=== PATIENT | male | born 1960 | race Caucasian/White ===

== ENCOUNTER → 2024-01-28 11:29 | Outpatient (REF) | payer MEDICARE, OTHER, SELFPAY | LOC: PAVMRI 11:29 | PROVIDERS: ATTENDING PHYSICIAN Psychiatry & Neurology Neurology; FAMILY PHYSICIAN Family Medicine | DX: G60.9 Hereditary and idiopathic neuropathy, unspecified (principal); M54.12 Radiculopathy, cervical region | CPT/HCPCS: 72141 ==

== ENCOUNTER 2024-03-17 03:17 | Inpatient (IN) | payer MEDICARE, OTHER, SELFPAY ==
[2024-03-16 21:53] VITALS: BP 130/76
[2024-03-16 22:12] LABS: % Basophils 0.8 % (0-2); % Eosinophils 1.3 % (0-6); % Immature Granulocytes 0.3 % (0-0.5); % Lymphocytes 45.9 % (20.5-51.1); % Monocytes 7.6 % (1.7-9.3); % Neutrophils 44.1 % (42.2-75.2); Absolute Basophils 0.1 10^3/uL (0-0.2); Absolute Eosinophils 0.1 10^3/uL (0-0.7); Absolute Lymphocytes 3.6 10^3/uL (1.2-3.4); Absolute Monocytes 0.6 10^3/uL (0.1-0.6); Absolute Neutrophils 3.5 10^3/uL (1.4-6.5); Hematocrit 49.3 % (39.0-52.0); Hemoglobin 17.7 g/dL (13.0-18.0); Mean Corp Hgb Conc. 35.9 g/dL (33.0-37.0); Mean Corpuscular Hgb 30.5 pg (27.0-31.0); Mean Corpuscular Volume 84.9 fL (80.0-94.0); Mean Platelet Volume 10.7 fL (7.4-10.4); Nucleated Red Blood Cells % 0 % (-); Platelet Count 144 10^3/uL (130-400); Red Blood Cell Count 5.81 10^6/uL (4.70-6.10); Red Cell Dist. Width 13.1 % (11.5-14.5); White Blood Cell Count 7.9 10^3/uL (4.8-10.8)
[2024-03-16 22:18] VITALS: BP 136/84
[2024-03-16 22:25] LABS: ALT (SGPT) 36 U/L (0-50); AST (SGOT) 39 U/L (17-59); Albumin 4.5 g/dl (3.5-5.0); Alkaline Phosphatase 94 U/L (38-126); Blood Urea Nitrogen 17 mg/dl (9-20); Calcium 9.3 mg/dl (8.4-10.2); Carbon Dioxide 27 mmol/L (22-30); Chloride 107 mmol/L (98-107); Glucose 169 mg/dl (70-99); Potassium 3.9 mmol/L (3.5-5.1); Sodium 138 mmol/L (135-145); Total Bilirubin 0.6 mg/dl (0.2-1.3); Total Protein 6.6 g/dl (6.3-8.2); eGFR > 60.00
[2024-03-16 22:30] VITALS: BMI 30.9
[2024-03-16 22:55] LABS: TSH Reflex To Free T4 2.61 uIU/ml (0.47-4.68)
--- NOTE | 2024-03-16 22:59 | ED.GENMED ---
History of Present Illness
<TRINI Redding - Last Filed: 03/17/24 06:31>
General
Chief Complaint: Heart Rate Problem
Source: patient
Exam Limitations: none
Time Seen by Provider: 03/16/24 22:47
Nursing documentation reviewed up to this point in time: agreed with
Travel History
Have you had any contact with someone who has COVID-19?: No
Do you have any symptoms of coronavirus? Fever > 100 degrees, chills, cough, shortness of breath, sore throat, loss of taste or smell, muscle aches, or headache?: No
History of Present Illness
History of Present Illness:
This is a 64 year old male with history of afib (ablation 2016), sleep apnea, anxiety, depression, CLL who presents to the ED with complaint of heart palpitations x1 day. He states, 'I felt this before when I had afib.' He states he was getting
ready for bed yesterday when he noticed his heart racing. He was able to sleep through the night without any difficulty, but continued to have heart palpitations when he woke up. He reports he started taking Doxycycline 100mg BID on Saturday
prescribed by his PCP for potential tic bite. He also admits 'not feeling well on Saturday.' He was drinking beers over the weekend. He denies SOB, CP, headaches, LE extremity, fevers, chills, or NVD. He denies recent history of travel or illness.
Denies recent sick contacts.
Past History
<TRINI Redding - Last Filed: 03/17/24 06:31>
Past History
ED Past Medical History: Psychiatric (anxiety, depression); Negative Asthma, HTN, Hypercholesterolemia or NIDDM
ED Past Surgical History: Appendectomy and Cardiac (Ablation)
Social History
Tobacco: Non-smoker
Alcohol: Occasional
Personal:
Living: alone
Employment: Employed
Review of Systems
<TRINI Redding - Last Filed: 03/17/24 06:31>
Review of Systems
Allergies reviewed?: Yes
All Other Systems: Not applicable
Constitutional: Reports no symptoms
EENT: Reports no symptoms
Respiratory: Reports no symptoms
Cardiac: Reports palpitations and other ('I feel like I'm in afib')
ABD/GI: Reports no symptoms
: Reports no symptoms
Musculoskeletal: Reports no symptoms
Skin: Reports no symptoms
Neurological: Reports no symptoms
Endocrine: Reports no symptoms
Hematologic/Lymphatic: Reports no symptoms
Psychiatric: Reports no symptoms
Phy Exam
<TRINI Redding - Last Filed: 03/17/24 06:31>
General Physical Exam
General Presentation: well appearing and no apparent distress
General Skin: warm and dry
General Habitus: normal
General Mental: alert
General Hydration: appears well hydrated
ENT Exam
ENT Exam: EOMI, pharynx normal, neck supple and normocephalic
Eye Exam
Eye Exam: PERRL, cornea clear and conjunctiva normal
Cardiovascular Exam
Cardiovascular Exam: no edema, no murmur, normal peripheral pulses, irregularly irregular and tachycardia
Pulmonary Exam
Pulmonary Exam: lungs clear, no respiratory distress, no rales, no crackles, no rhonchi, no stridor, no wheezing and no cough
Gastrointestinal Exam
Gastrointestinal Exam: normal bowel sounds, non tender, soft, no organomegaly, no pulsatile mass and non distended
Neurological Exam
Neurological Exam: alert, oriented x3, no motor deficits and speech normal
Musculoskeletal Exam
Musculoskeletal Exam: full ROM and no edema
Skin Exam
Skin Exam: normal color, warm/dry, no rash and no petechia
Psychiatric Exam
Psychiatric Exam: normal mood/affect
Course
<TRINI Redding - Last Filed: 03/17/24 06:31>
Orders/Labs/Results
Orders:
Orders
03/16/24 21:47
Electrocardiogram (*1) Urgent
Reason for Study: Palpitations
EKG- Treatment ONCE
03/16/24 22:04
CMP [Comprehensive Metabolic Panel] Urgent
Complete Blood Count/With Diff Urgent
TSH Reflex To Free T4 Urgent
03/16/24 23:18
Diltiazem 125 mg/125 ml Nss [Cardizem] 125 mg in 125 ml IV NOW
Initial dose in mg/hr, then titrate:: 5
Titrate to keep:: Heart rate 80-100 bpm
Titrate by mg/hr:: 5 mg/hr
Frequency of titrations (minutes):: 15
Maximum dose in mg/hr:: 15
Diltiazem HCl [Cardizem] 5 mg IV NOW STA
03/16/24 23:32
Lyme Progressive Urgent
03/17/24 03:00
Admit/Transfer Patient As Directed
Co-Sign Provider:
Level of Care: Inpatient admission
Assign to:: IVU
Physician / Group: Kevin
Diagnosis: A-Fib with RVR
Reason for Hospitalization: A-Fib with RVR
Expected length of stay greater than two midnights?: Yes
ELOS- Estimated Length of Stay in days: 2
I certify the patient meets the requirements for IP care: Yes
03/17/24 03:04
Code Status As Directed
Resuscitation Status: Full Code
03/17/24 03:[address] See Dose Instructions PO NOW STA
Discontinue all Active Warfarin orders?: Yes
03/17/24 03:28
Acetaminophen [Tylenol] 650 mg PO Q4HPRN PRN
Diltiazem 125 mg/125 ml Nss [Cardizem] 125 mg in 125 ml IV PER PROTOCOL
Currently infusing. Continue current dose and titrate:: Yes
Titrate to keep:: Heart rate 80-100 bpm
Titrate by mg/hr:: 5 mg/hr
Frequency of titrations (minutes):: 15
Maximum dose in mg/hr:: 15
Heparin 29121 Units/250 ml 25,000 units in 250 ml IV PER PROTOCOL
Weight to be used for heparin protocol in kilograms (kg):: 117.934
Protocol:: Cardiac Tx/Acute Coronary
PTT Goal Range to be used:: PTT 73 to 111 seconds
Order type:: Initial
INITIAL Infusion Dose (UNITS/KG/hr) & then follow protocol:: 12 units/kg/hr
Infusion Dose in UNITS/hr & then follow protocol (UNITS/hr):: 1,000
INFUSION RATE in mL/hr & then follow protocol (mL/hr):: 10
PTT less than or equal to 64 seconds:: Increase rate by 200 units/hr (+ 2 mL/hr)
PTT 64.1 to 72.9 seconds:: Increase rate by 100 units/hr (+ 1 mL/hr)
PTT 73 to 111 seconds:: Target Range. No change in rate.
PTT 111.1 to 130.9 seconds:: Decrease rate by 100 units/hr (- 1 mL/hr)
PTT 131 to 199.9 seconds:: HOLD for 1 hr. Then decrease rate by 200 units/hr (- 2 mL/hr)
PTT greater than or equal to 200 seconds:: HOLD for 2 hrs & Notify Provider. Then decrease by 200 units/hr (-
2 mL/hr)
Lab follow-up:: Each change, PTT q6h until 2 consecutive are therapeutic. Then PTT
daily.
03/17/24 03:28
CARDIOLOGY CONSULT Routine
Consulting Provider: Devon Bernal
Was physician already notified: No
Reason for consult: A-Fib
Consult Notification Routine
Specialty to Notify: Cardiology
Heparin Protocol- PTT Orders As Directed
PTT per Heparin protocol: -Obtain CBC and baseline PTT - if not already collected.
-Obtain PTT 6 hours from start of infusion. Then, every 6 hours until 2 consecutive
PTT's are therapeutic. Then, PTT Daily.
-With each rate change, obtain PTT every 6 hours until 2 consecutive PTT's are
therapeutic. Then, PTT Daily.
Activity As Directed
Activity Level: Ambulate
With Assistance
Bladder Scan As Directed
Follow Bladder Retention/Intermittent Cath Algorithm?: Yes
PRN if no void in __ hours: 6
Frequency: Per Retention Algorithm
If Bladder Scan Result >: 400
then:: Straight cath
EKG with chest pain [ECG as needed] As Directed
ECG as needed for:: Chest Pain
I/O [Intake/ Output] As Directed
Frequency: Per unit guidelines
Notify MD As Directed
Notify physician if: PTT is greater than or equal to 200.
Orthostatic Vital Signs As Directed
Orthostatic VS Frequency: BID
Straight Cath As Directed
Frequency: Per Retention Algorithm
Additional Instructions: straight cath as needed per acute urinary retention algorithm for 24 hrs
Additional Instructions: for bladder scan greater than 400 mL
Vital Signs As Directed
Frequency: Per unit guidelines
Weight As Directed
Frequency: Daily
Oxygen Therapy [O2 Therapy] [RESP] Routine
Titrate/Wean O2 to maintain O2 sat greater than (%): 94
03/17/24 03:30
Basic Metabolic Panel IN AM
03/17/24 03:33
Complete Blood Count/No Diff Urgent
Comment: Obtain baseline before beginning heparin infusion if not already collected
PTT Urgent
Comment: Obtain baseline before beginning heparin infusion if not already collected
Troponin I Q6H
03/17/24 05:54
Complete Blood Count/No Diff IN AM
03/17/24 06:00
EKG [Electrocardiogram (*1)] IN AM
Reason for Study: Chest Pain
03/17/24 08:00
Desvenlafaxine Succinate [Pristiq] 50 mg PO DAILY
Lamotrigine [Lamictal] 25 mg PO DAILY
Rosuvastatin Calcium [Crestor] 40 mg PO DAILY
zanubrutinib 160 mg PO BID
03/17/24 09:28
Troponin I Q6H
03/17/24 15:28
Troponin I Q6H
03/18/24 Breakfast
NPO
Allow oral meds: Yes
Allow clear liquids: Sips of Clears
03/19/24 06:00
Complete Blood Count/No Diff Q2D
Comment: Notify MD if platelet count is <130,000 or decreases by 50% from baseline
03/21/24 06:00
Complete Blood Count/No Diff Q2D
Comment: Notify MD if platelet count is <130,000 or decreases by 50% from baseline
03/23/24 06:00
Complete Blood Count/No Diff Q2D
Comment: Notify MD if platelet count is <130,000 or decreases by 50% from baseline
03/25/24 06:00
Complete Blood Count/No Diff Q2D
Comment: Notify MD if platelet count is <130,000 or decreases by 50% from baseline
03/27/24 06:00
Complete Blood Count/No Diff Q2D
Comment: Notify MD if platelet count is <130,000 or decreases by 50% from baseline
03/29/24 06:00
Complete Blood Count/No Diff Q2D
Comment: Notify MD if platelet count is <130,000 or decreases by 50% from baseline
03/31/24 06:00
Complete Blood Count/No Diff Q2D
Comment: Notify MD if platelet count is <130,000 or decreases by 50% from baseline
04/02/24 06:00
Complete Blood Count/No Diff Q2D
Comment: Notify MD if platelet count is <130,000 or decreases by 50% from baseline
Abnormal Lab Results
03/16/24
22:04
MPV 10.7 H fL
(7.4-10.4)
Absolute Lymphs (auto) 3.6 H 10^3/uL
(1.2-3.4)
Glucose 169 H mg/dl
(70-99)
03/16/24 22:04
03/16/24 22:04
Vital Signs
Initial and Last Documented VS:
Initial Vital Signs
Temp Pulse Resp BP Pulse Ox
98.1 F 137 18 130/76 98
03/16/24 21:53 03/16/24 21:53 03/16/24 21:53 03/16/24 21:53 03/16/24 21:53
Last Documented Vital Signs
Temp Pulse Resp BP Pulse Ox
97.6 F 83 15 132/67 97
03/17/24 03:00 03/17/24 06:00 03/17/24 06:00 03/17/24 06:00 03/17/24 03:00
<Rodger Luna, DO - Last Filed: 03/17/24 07:14>
Orders/Labs/Results
Orders:
Orders
03/16/24 21:47
Electrocardiogram (*1) Urgent
Reason for Study: Palpitations
EKG- Treatment ONCE
03/16/24 22:04
CMP [Comprehensive Metabolic Panel] Urgent
Complete Blood Count/With Diff Urgent
TSH Reflex To Free T4 Urgent
03/16/24 23:18
Diltiazem 125 mg/125 ml Nss [Cardizem] 125 mg in 125 ml IV NOW
Initial dose in mg/hr, then titrate:: 5
Titrate to keep:: Heart rate 80-100 bpm
Titrate by mg/hr:: 5 mg/hr
Frequency of titrations (minutes):: 15
Maximum dose in mg/hr:: 15
Diltiazem HCl [Cardizem] 5 mg IV NOW STA
03/16/24 23:32
Lyme Progressive Urgent
03/17/24 03:00
Admit/Transfer Patient As Directed
Co-Sign Provider:
Level of Care: Inpatient admission
Assign to:: IVU
Physician / Group: Kevin
Diagnosis: A-Fib with RVR
Reason for Hospitalization: A-Fib with RVR
Expected length of stay greater than two midnights?: Yes
ELOS- Estimated Length of Stay in days: 2
I certify the patient meets the requirements for IP care: Yes
03/17/24 03:04
Code Status As Directed
Resuscitation Status: Full Code
03/17/24 03:[address] See Dose Instructions PO NOW STA
Discontinue all Active Warfarin orders?: Yes
03/17/24 03:28
Acetaminophen [Tylenol] 650 mg PO Q4HPRN PRN
Diltiazem 125 mg/125 ml Nss [Cardizem] 125 mg in 125 ml IV PER PROTOCOL
Currently infusing. Continue current dose and titrate:: Yes
Titrate to keep:: Heart rate 80-100 bpm
Titrate by mg/hr:: 5 mg/hr
Frequency of titrations (minutes):: 15
Maximum dose in mg/hr:: 15
Heparin 65616 Units/250 ml 25,000 units in 250 ml IV PER PROTOCOL
Weight to be used for heparin protocol in kilograms (kg):: 117.934
Protocol:: Cardiac Tx/Acute Coronary
PTT Goal Range to be used:: PTT 73 to 111 seconds
Order type:: Initial
INITIAL Infusion Dose (UNITS/KG/hr) & then follow protocol:: 12 units/kg/hr
Infusion Dose in UNITS/hr & then follow protocol (UNITS/hr):: 1,000
INFUSION RATE in mL/hr & then follow protocol (mL/hr):: 10
PTT less than or equal to 64 seconds:: Increase rate by 200 units/hr (+ 2 mL/hr)
PTT 64.1 to 72.9 seconds:: Increase rate by 100 units/hr (+ 1 mL/hr)
PTT 73 to 111 seconds:: Target Range. No change in rate.
PTT 111.1 to 130.9 seconds:: Decrease rate by 100 units/hr (- 1 mL/hr)
PTT 131 to 199.9 seconds:: HOLD for 1 hr. Then decrease rate by 200 units/hr (- 2 mL/hr)
PTT greater than or equal to 200 seconds:: HOLD for 2 hrs & Notify Provider. Then decrease by 200 units/hr (-
2 mL/hr)
Lab follow-up:: Each change, PTT q6h until 2 consecutive are therapeutic. Then PTT
daily.
03/17/24 03:28
CARDIOLOGY CONSULT Routine
Consulting Provider: Devon Bernal
Was physician already notified: No
Reason for consult: A-Fib
Consult Notification Routine
Specialty to Notify: Cardiology
Heparin Protocol- PTT Orders As Directed
PTT per Heparin protocol: -Obtain CBC and baseline PTT - if not already collected.
-Obtain PTT 6 hours from start of infusion. Then, every 6 hours until 2 consecutive
PTT's are therapeutic. Then, PTT Daily.
-With each rate change, obtain PTT every 6 hours until 2 consecutive PTT's are
therapeutic. Then, PTT Daily.
Activity As Directed
Activity Level: Ambulate
With Assistance
Bladder Scan As Directed
Follow Bladder Retention/Intermittent Cath Algorithm?: Yes
PRN if no void in __ hours: 6
Frequency: Per Retention Algorithm
If Bladder Scan Result >: 400
then:: Straight cath
EKG with chest pain [ECG as needed] As Directed
ECG as needed for:: Chest Pain
I/O [Intake/ Output] As Directed
Frequency: Per unit guidelines
Notify MD As Directed
Notify physician if: PTT is greater than or equal to 200.
Orthostatic Vital Signs As Directed
Orthostatic VS Frequency: BID
Straight Cath As Directed
Frequency: Per Retention Algorithm
Additional Instructions: straight cath as needed per acute urinary retention algorithm for 24 hrs
Additional Instructions: for bladder scan greater than 400 mL
Vital Signs As Directed
Frequency: Per unit guidelines
Weight As Directed
Frequency: Daily
Oxygen Therapy [O2 Therapy] [RESP] Routine
Titrate/Wean O2 to maintain O2 sat greater than (%): 94
03/17/24 03:30
Basic Metabolic Panel IN AM
03/17/24 03:33
Complete Blood Count/No Diff Urgent
Comment: Obtain baseline before beginning heparin infusion if not already collected
PTT Urgent
Comment: Obtain baseline before beginning heparin infusion if not already collected
Troponin I Q6H
03/17/24 05:54
Complete Blood Count/No Diff IN AM
03/17/24 06:00
EKG [Electrocardiogram (*1)] IN AM
Reason for Study: Chest Pain
03/17/24 08:00
Desvenlafaxine Succinate [Pristiq] 50 mg PO DAILY
Lamotrigine [Lamictal] 25 mg PO DAILY
Rosuvastatin Calcium [Crestor] 40 mg PO DAILY
zanubrutinib 160 mg PO BID
03/17/24 09:28
Troponin I Q6H
03/17/24 15:28
Troponin I Q6H
03/18/24 Breakfast
NPO
Allow oral meds: Yes
Allow clear liquids: Sips of Clears
03/19/24 06:00
Complete Blood Count/No Diff Q2D
Comment: Notify MD if platelet count is <130,000 or decreases by 50% from baseline
03/21/24 06:00
Complete Blood Count/No Diff Q2D
Comment: Notify MD if platelet count is <130,000 or decreases by 50% from baseline
03/23/24 06:00
Complete Blood Count/No Diff Q2D
Comment: Notify MD if platelet count is <130,000 or decreases by 50% from baseline
03/25/24 06:00
Complete Blood Count/No Diff Q2D
Comment: Notify MD if platelet count is <130,000 or decreases by 50% from baseline
03/27/24 06:00
Complete Blood Count/No Diff Q2D
Comment: Notify MD if platelet count is <130,000 or decreases by 50% from baseline
03/29/24 06:00
Complete Blood Count/No Diff Q2D
Comment: Notify MD if platelet count is <130,000 or decreases by 50% from baseline
03/31/24 06:00
Complete Blood Count/No Diff Q2D
Comment: Notify MD if platelet count is <130,000 or decreases by 50% from baseline
04/02/24 06:00
Complete Blood Count/No Diff Q2D
Comment: Notify MD if platelet count is <130,000 or decreases by 50% from baseline
Abnormal Lab Results
03/16/24
22:04
MPV 10.7 H fL
(7.4-10.4)
Absolute Lymphs (auto) 3.6 H 10^3/uL
(1.2-3.4)
Glucose 169 H mg/dl
(70-99)
03/16/24 22:04
03/16/24 22:04
Vital Signs
Initial and Last Documented VS:
Initial Vital Signs
Temp Pulse Resp BP Pulse Ox
98.1 F 137 18 130/76 98
03/16/24 21:53 03/16/24 21:53 03/16/24 21:53 03/16/24 21:53 03/16/24 21:53
Last Documented Vital Signs
Temp Pulse Resp BP Pulse Ox
97.6 F 83 15 132/67 97
03/17/24 03:00 03/17/24 06:00 03/17/24 06:00 03/17/24 06:00 03/17/24 03:00
<TRINI Redding - Last Filed: 03/17/24 06:31>
MDM/Problems Addressed
Differential Diagnosis Includes:
Afib RVR, atrial flutter, hyperthyroidism, anxiety
Atrial flutter considered, however ECG not consistent and heart rate has been in 120-130s. Hyperthyroidism considered, however TSH (reflex) within normal limits. Anxiety also on differentials due to heart palpitations, however patient does not feel
anxious and has ECG findings consistent with afib. Patient is stable with normal labs. Afib is seen on ECG with no distant p waves and irregular pattern with a heart rate in the 120s-130s. He was drinking alcohol over the weekend that could have
induced his afib. He denies any recent illnesses or flu like symptoms, however states vaguely 'not feeling well on Saturday.' Patient has had an ablation in 2017 allowing him to be symptom free for the last 7 years. He denies any anticoagulants with
his diagnosis of afib. Plan to state Cardizem drip for rate control. Since he has not been on anticoagulants and is unable to definitively know when afib started, it is best to proceed to cardioversion at the moment. If plan to see how patient
responds to Cardizem and if symptoms persist, will admit for observation and potential cardiac imaging prior to cardioversion.
<Rodger Luna DO - Last Filed: 03/17/24 07:14>
MDM/Problems Addressed
Chronic conditions affecting care: Arrhythmia
Acute Exacerbation and/or Progression of Chronic Illness: Arrhythmia
<TRINI Redding - Last Filed: 03/17/24 06:31>
*Critical Care Note
Total Time (30-74mins, 75-104mins- exclusive of procedures): Not Applicable
<Rodger Luna DO - Last Filed: 03/17/24 07:14>
*Pulse Oximetry
Patient hypoxic: no
*EKG
Interpreted by ED Provider?: Yes
EKG Intrepretation Date: 03/16/24
EKG Intrepretation Time: 21:51
Interpretation: abnormal
Comparison EKG: changes noted
Heart Rate: 121
Rate: tachycardiac
Rhythm: a-fib
Hill: normal axis
Interval: normal interval
QRS Pattern: right bundle branch block
Ischemia: no ischemia
*Licensed Acupuncturist Interpretation
Rate: tachycardiac
Interpretation: abnormal
Heart Rate: 120
Rhythm: a-fib
*Critical Care Note
Total Time (30-74mins, 75-104mins- exclusive of procedures): 30
comment:
Critical care statement: A total of 30 minutes of critical care time was provided for this patient. This includes management of unstable vital signs, evaluation of the patient at bedside, reviewing the patient's pertinent medical records, discussion
with consultants, review of old EKGs and review of pertinent medical records. This time with separate from time utilized to perform the aforementioned documented procedures
<DO Rick Walker Last Filed: 03/17/24 07:14>
Patient Management
Social determinants of health affecting care: Living situation
Discussion with other providers: Hospitalist
Escalation/DeEscalation of care consider admission/obs:
Admit indicated
ED Attending Note
<TRINI Redding - Last Filed: 03/17/24 06:31>
-
Portions of this chart may have been created with voice recognition software.� Occasional wrong word or��sound alike� substitutions may have occurred due to the inherent limitations of voice recognition software.
<DO Rick Walker Last Filed: 03/17/24 07:14>
ED Attending Note
Patient seen and examined by attending physician: Yes
I performed a history and physical exam of patient and discussed management with resident, I reviewed resident's note and agree with documented findings and plan of care.: Yes
ED Attending Note:
I have reviewed and agree with history and treatment plan by Ibis Rojas. My exam revealed 64-year-old male with tachycardia, irregular rhythm. Afebrile, clear lungs, abdomen soft, nontender. 4+ dorsalis pedis pulses, 4+ radial pulses
bilaterally. EKG reveals atrial fibrillation with rapid ventricular response. Will start diltiazem drip and reevaluate, potentially admit to hospitalist.
Discharge Plan
Departure
Patient Disposition: Admit
Date of Disposition: 03/17/24
Time of Disposition: 00:33
Admit to: IVU
Presentation/result/management discussed w/ accepting MD/DO: Hospitalist
Patient with high blood pressure during this ER visit?: Yes
Condition: Fair
Discharge Problem:
Atrial fibrillation with rapid ventricular response
Interventions
Interventions:
*Risk Screen - Suicide Last Done: 03/16/24 22:30
*General Assessment Last Done: 03/16/24 22:30
*Neglect/Abuse Screening Last Done: 03/16/24 22:30
ED- Fall Risk Assessment Last Done: 03/16/24 22:30
*ED COVID-19 Vaccine History Last Done: 03/16/24 22:30
ED- Cardiac Assessment Last Done: 03/17/24 03:09
ED- Pulmonary Assessment Last Done: 03/17/24 03:09
[2024-03-16 23:00] VITALS: BP 115/84
[2024-03-16 23:31] VITALS: BP 138/82
[2024-03-16] MEDS: CARDIZEM 5 MG IV (23:33)
[2024-03-16] MEDS: CARDIZEM 125 IV (23:37)
[2024-03-16 23:45] VITALS: BP 126/83
[2024-03-17] VITALS (20 sets, daily range): BP systolic 116–150; BP diastolic 67–94; BMI 30.9
[2024-03-17 03:54] LABS: Hematocrit 44.5 % (39.0-52.0); Hemoglobin 16.2 g/dL (13.0-18.0); Mean Corp Hgb Conc. 36.4 g/dL (33.0-37.0); Mean Corpuscular Volume 85.1 fL (80.0-94.0); Mean Platelet Volume 10.5 fL (7.4-10.4); Platelet Count 142 10^3/uL (130-400); Red Blood Cell Count 5.23 10^6/uL (4.70-6.10); Red Cell Dist. Width 13.2 % (11.5-14.5); White Blood Cell Count 7.5 10^3/uL (4.8-10.8)
[2024-03-17 03:57] LABS: APTT 27.1 Sec (23.4-35.0)
[2024-03-17 04:12] LABS: Blood Urea Nitrogen 15 mg/dl (9-20); Calcium 9.3 mg/dl (8.4-10.2); Carbon Dioxide 24 mmol/L (22-30); Chloride 110 mmol/L (98-107); Estimated Creatinine Clearance > 125 ml/min; Glucose 114 mg/dl (70-99); Potassium 3.9 mmol/L (3.5-5.1); Sodium 139 mmol/L (135-145); eGFR > 60.00
[2024-03-17] MEDS: HEPARIN 25000 UNITS/250 ML IV (04:18)
[2024-03-17 04:27] LABS: Troponin I 0.046 ng/ml
--- NOTE | 2024-03-17 05:23 | HPS.HSE ---
Family Physician
-
Family Physician: Rodger Rice
Chief Complaint
-
Palpitations
History of Present Illness
Patient is a 64y M with PMH significant for CLL and previous A-Fib s/p ablation who presents to ED complaining of palpitations. Patient states that he was feeling well until Saturday evening when he noted palpitations / raicng heartbeat. Patient
states that he felt somewhat lightheaded and dizzy this evening and he presented to the ED for further evaluation and treatment.
Patient denies any chest pain, nausea, diaphoresis, etc.
Patient has prior history of A-Fib in 2017. He underwent DCCV at that time - but quickly returned to A-Fib. He underwent PVI ablation and has been stable since.
He is not on OAC medications.
Patient states that he saw his PCP on for a red spot / bite on his upper extremity that he thought might be a tick bite. No witnessed tick or other insect.
He was empirically started on doxycycline BID at that time. Patient states that he felt 'off' on Saturday and then noted the palpitations over the weekend.
He denies any other new medications.
Medical History
Past Medical History
Past Medical History: Reports Other
Additional Past Medical History:
CLL
A-Fib s/p Ablation
Depression
Past Surgical History: Reports Other
Additional Past Surgical History:
PVI Ablation
Appendectomy
Bilateral Knee Arthroscopies
T&A
Social History
Tobacco: Non-smoker
Alcohol: Occasional
Drug: None
Family History
Family History: Not pertinent
Allergies / Home Medications
Allergies reflects when Allergies were last updated in [employer].
Home Medications with original date entered in [employer]
Allergy/Medication List:
Allergies
Allergy/AdvReac Type Severity Reaction Status Date / Time
No Known Allergies Allergy Verified 03/16/24 21:52
Home Medications
desvenlafaxine succinate 50 mg tablet,extended release 24 hr (Pristiq) 50 mg PO DAILY 09/06/17
lamotrigine 25 mg chewable dispersible tablet 25 mg PO DAILY 09/06/17
rosuvastatin 40 mg tablet 40 mg PO DAILY 03/17/24
zanubrutinib 80 mg capsule 160 mg PO BID 03/17/24
Review of Systems
-
History Source: Patient
A 12 point ROS was completed and negative except as noted: Yes
Constitutional: Denies Fever or Chills
Respiratory: Denies Cough or Trouble Breathing
Cardiac: Reports Palpitations; Denies Chest Pain, Diaphoresis or Syncope
Abdomen/GI: Denies Abdominal Pain, Nausea, Vomiting or Diarrhea
Musculoskeletal: Denies Joint Pain or Edema
Neurological: Reports Dizzy; Denies Headache
Psych: Denies Depression or Anxiety
Physical Exam
Vital Signs
Vital Signs
Temp Pulse Resp BP Pulse Ox
97.6 F 87 14 117/67 97
03/17/24 03:00 03/17/24 04:00 03/17/24 04:00 03/17/24 04:00 03/17/24 03:00
Physical Exam
General: Other (64y M in no acute distress.)
HEENT: Moist mucous membranes and PERRLA
Respiratory: Clear; No Wheezes, Rales or Rhonchi
Cardiac: S1/S2, Irregular Rhythm and Tachycardia; No Murmur
GI: Soft, Non Tender, Non Distended and Normal Bowel Sounds
Musculoskeletal: No Clubbing, No Cyanosis and No Edema
Neuro: AO x 3
Laboratory Results
-
03/17/24 03:30
Laboratory Results
APTT 27.1 Sec (23.4-35.0) 03/17/24 03:33
Total Bilirubin 0.6 mg/dl (0.2-1.3) 03/16/24 22:04
AST 39 U/L (17-59) 03/16/24 22:04
ALT 36 U/L (0-50) 03/16/24 22:04
Alkaline Phosphatase 94 U/L (38-126) 03/16/24 22:04
Troponin I 0.046 ng/ml H* 03/17/24 03:33
Impression/Plan
-
A/P: Patient is a 64y M with PMH significant for previous A-Fib s/p ablation who presents to ED complaining of palpitations for the past 2-3 days.
Recurrent Atrial Fibrillation with Rapid Ventricular Rates
- Admit for further evaluation and treatment.
- Continue diltiazem and titrate as needed for adequate rate control.
- Not chronically on OAC so will start IV heparin for now.
- Cardiology evaluation in the AM for additional recommendations.
Non-Ischemic Myocardial Injury
- Troponin mildly elevated on initial set.
- No complaints of chest pain or other anginal equivalents.
- EKG with A-Fib but no evidence of acute ischemia.
- Suspect this is due to A-Fib / tachyarrhythmia.
- Follow to peak.
? Tick Bite
- Area is unremarkable appearing at present.
- Hold further doses of doxycycline for now.
- Lyme testing is pending.
CLL
- Stable. Cell counts are normal.
- Continue zanubrutinib - will bring med from home.
Anxiety / Depression
- Stable. Continue current home med regimen for mood disorder.
DVT Prophylaxis: On IV Heparin at present.
Code Status: Full
[2024-03-17] MEDS: TYLENOL 650 MG PO ×2 (05:34→12:17)
[2024-03-17 06:12] LABS: Hematocrit 47.3 % (39.0-52.0); Hemoglobin 16.7 g/dL (13.0-18.0); Mean Corp Hgb Conc. 35.3 g/dL (33.0-37.0); Mean Corpuscular Hgb 30.4 pg (27.0-31.0); Mean Platelet Volume 10.5 fL (7.4-10.4); Platelet Count 144 10^3/uL (130-400); Red Cell Dist. Width 13.2 % (11.5-14.5); White Blood Cell Count 7.3 10^3/uL (4.8-10.8)
[2024-03-17] MEDS: CRESTOR 40 MG PO (08:41)
[2024-03-17] MEDS: PRISTIQ 50 MG PO (08:42)
[2024-03-17] MEDS: LAMICTAL 25 MG PO (08:42)
[2024-03-17 10:11] LABS: APTT 33.1 Sec (23.4-35.0)
--- NOTE | 2024-03-17 10:11 | CON.CAR ---
Addendum entered and electronically signed by Edu Bernard MD 03/17/24 12:44:
Patient seen and examined in collaboration with H[employer]ING JOB SETTER; agree with below.
-64-year-old male with paroxysmal atrial fibrillation and hypertension presenting with recurrent atrial fibrillation with RVR.
-Continue Cardizem drip.
-Continue heparin drip.
-Will obtain echocardiogram to thoroughly reassess cardiac function.
-Will plan for ANSHUL/cardioversion tomorrow morning if the patient remains in atrial fibrillation.
-Transition to Eliquis after procedure tomorrow.
-Patient will need ischemic evaluation (likely as outpatient).
-Telemetry monitoring; will follow.
Original Note:
Consultation
Consultation Request
Date/Time Consultation Requested: 03/17/2024 03:30
Date/Time Consultation Performed: 03/17/2024 10:30
Requesting Provider: Dr. Brown
Performing Provider: MAX Culver for Dr. Bernard
Reason for Consultation: Atrial fibrillation with rapid ventricular response
Medical History
-
Chief Complaint: Palpitations
History of Present Illness:
Dimitry Garcia is a 64-year-old male (known to Dr. Hartman, his primary agricultural engineering teacher) with paroxysmal atrial fibrillation status post ablation 2016, hypertension, and CLL who has had his first recurrence since ablation. He had sudden onset of
palpitations Saturday evening and presented to the emergency room in atrial fibrillation with rapid ventricular response. Last week, he reported going to his PCP for a red spot on his right upper extremity that he thought may be a tick bite. He was
given doxycycline. He did not have a witnessed bite. He reports feeling unwell since . .
Past Medical History
Past Medical History: Arrhythmias (Paroxysmal atrial fibrillation status post ablation), Cancer (CLL), HTN, Hypercholesterolemia and Psychiatric (Anxiety)
Past Surgical History: Appendectomy, Orthopedic and Tonsilectomy
Social History
Tobacco: Non-Smoker
Alcohol: Occasional
Drug: None
Personal:
Living: With Family
Family History
Family History: Reviewed & Not Pertinent (Denies early CAD and SCD)
Allergies / Home Medications
Allergy/AdvReac Type Severity Reaction Status Date / Time
No Known Allergies Allergy Verified 03/16/24 21:52
�Medication �Instructions �Recorded �Confirmed �Type
desvenlafaxine succinate 50 mg 50 mg PO DAILY depression 09/06/17 03/17/24 History
tablet,extended release 24 hr
(Pristiq)
lamotrigine 25 mg chewable 25 mg PO DAILY Neurological 09/06/17 03/17/24 History
dispersible tablet Condition
doxycycline hyclate 100 mg capsule 100 mg PO BID Infection 03/17/24 03/17/24 History
omega-3 fatty acids-fish oil 684 1 cap PO DAILY Supplement 03/17/24 03/17/24 History
mg-1,200 mg capsule,delayed release
rosuvastatin 40 mg tablet 40 mg PO DAILY High Cholesterol 03/17/24 03/17/24 History
sumatriptan succinate 25 mg tablet 0 mg PO .COMPLEX migraine 03/17/24 03/17/24 History
(Imitrex)
zanubrutinib 80 mg capsule 160 mg PO BID Cancer/CLL 03/17/24 03/17/24 History
Review of Systems
-
History Source: Patient
All other systems: Negative unless noted
Constitutional: Fatigue
Cardiac: Palpitations
Abdomen/GI: No Symptoms
: No Symptoms
Physical Exam
Vital Signs
Temp Pulse Resp BP Pulse Ox
97.6 F 108 23 116/70 97
03/17/24 03:00 03/17/24 09:00 03/17/24 09:00 03/17/24 09:00 03/17/24 03:00
Lab Results
03/17/24 05:54
03/17/24 03:30
Troponin I 0.046 ng/ml H* 03/17/24 03:33
Physical Exam
General: Well Developed, Well Nourished, No Apparent Distress and Comfortable
HEENT: Normocephalic, Anicteric and Moist Mucous Membranes
Respiratory: Clear and Non Labored Respirations
Cardiac: S1/S2 and Irregular Rhythm; Negative Peripheral Edema
Breast: Deferred by me
GI: Soft, Non Tender, Non Distended and Normal Bowel Sounds
Rectal: Deferred by Provider
Genito-urinary: No Costovertebral Tender
Musculoskeletal: No Clubbing, No Cyanosis and No Edema
Skin: Warm and Dry
Neuro: AO x 3
Hematologic/Lymphatic: No Lymphadenopathy
Psych: Calm
Impression / Plan
-
Atrial fibrillation with rapid ventricular response
-Rate controlled on diltiazem 15mg/hour
-Oral Anticoagulation: Heparin gtt, transition to apixaban 5mg BID if TTE unremarkable
-[id number]: score at least 2 (HTN, age 65-74)
-NPO in am for ANSHUL guided DCCV, he is agreeable to oral anticoagulation for minimum of 4 weeks post cardioversion
Abnormal troponin, nonischemic myocardial injury in the setting of tachyarrhythmia
-Denies chest pain
-Peak troponin on arrival, 0.046
Hypertension, stable on diltiazem drip, there was concern with ALESSANDRO/ARB in the past for induced rhabdo
HLD, on rosuvastatin
CLL
Data Reviewed
-
EKG: Report Reviewed by me (Atrial fibrillation with rapid ventricular response, IRBBB, rate 121)
Labs: Labs Reviewed by me
Old Records: Reviewed
--- NOTE | 2024-03-17 13:07 | W.PN.HOSP.TC ---
Today's Communication/Plan
-
Monitor vital signs see plan
Continue with diltiazem, heparin
N.p.o. past midnight for ANSHUL/cardioversion
Echo today
Nonbillable note
Assessment / Plan
Assessment / Plan
General: Other (64y M in no acute distress.)
HEENT: Moist mucous membranes and PERRLA
Respiratory: Clear; No Wheezes, Rales or Rhonchi
Cardiac: S1/S2, Irregular Rhythm and Tachycardia; No Murmur
GI: Soft, Non Tender, Non Distended and Normal Bowel Sounds
Musculoskeletal: No Clubbing, No Cyanosis and No Edema
Neuro: AO x 3
Recurrent Atrial Fibrillation with Rapid Ventricular Rates
- Continue diltiazem and titrate as needed for adequate rate control.
- Not chronically on OAC so will start IV heparin for now.
Cardiology following
N.p.o. past midnight for possible ANSHUL/cardioversion
Echo
Non-Ischemic Myocardial Injury
- Troponin mildly elevated on initial set.
- No complaints of chest pain or other anginal equivalents.
- EKG with A-Fib but no evidence of acute ischemia.
- Suspect this is due to A-Fib / tachyarrhythmia.
? Tick Bite
- Area is unremarkable appearing at present.
- Hold further doses of doxycycline for now.
- Lyme testing is pending.
CLL
- Stable. Cell counts are normal.
- Continue zanubrutinib - will bring med from home.
Anxiety / Depression
- Stable. Continue current home med regimen for mood disorder.
DVT Prophylaxis: On IV Heparin at present.
Code Status: Full
Anticipated Discharge: Within 24 hours
Subjective/Interval History
-
Date of Service: March 17, 2024
denies pain
Objective Data
-
Labs:
Laboratory Results
03/17/24 03/17/24 03/17/24
03:30 03:33 05:54
WBC 7.5 7.3
Hgb 16.2 16.7
Hct 44.5 47.3
Plt Count 142 144
APTT 27.1
Sodium 139
Potassium 3.9
Chloride 110 H
Carbon Dioxide 24
BUN 15
Creatinine 0.8
Glucose 114 H
Calcium 9.3
03/17/24 03/17/24
09:30 16:50
WBC
Hgb
Hct
Plt Count
APTT 33.1 Pending
Sodium
Potassium
Chloride
Carbon Dioxide
BUN
Creatinine
Glucose
Calcium
Vital Signs:
Vital Signs
Temp Pulse Resp BP Pulse Ox
97.6 F 99 21 150/81 97
03/17/24 03:00 03/17/24 10:00 03/17/24 10:00 03/17/24 10:00 03/17/24 03:00
[2024-03-17 18:05] LABS: APTT > 200 Sec (23.4-35.0)
[2024-03-17 18:38] LABS: APTT 39.4 Sec (23.4-35.0)
--- NOTE | 2024-03-17 23:54 | PTCARENOTE ---
Received pt from ED via stretcher. Pt ambulated to bed without assist. AAOx3, VSS, no complaints of pain. Oriented to floor, call tran within reach.
--- NOTE | 2024-03-17 23:58 | PTCARENOTE ---
Cardizem gtt discontinued by [employer]ER due to HR in the 50s-60s while resting, 70s with ambulation. Pt converted into SR/SB with PACs - confirmed with EKG. Gtt turned off at 23:50 per order.
--- NOTE | 2024-03-18 01:02 | W.PN.UPDATE ---
Update Note
Progress Note Update
RN notified FARM MANAGER, patient converted to NSR and HR in low 60's, BP 149/79. Advised EKG, and d/c'd the Cardizem drip. Patient with no new symptoms.
[2024-03-18] MEDS: HEPARIN 25000 UNITS/250 ML IV (01:35)
[2024-03-18 03:21] VITALS: BP 118/82
[2024-03-18 06:00] VITALS: BMI 30.7
[2024-03-18 07:35] VITALS: BP 140/84
--- NOTE | 2024-03-18 08:50 | W.PN.CD ---
Today's Communication / Plan
-
-Patient converted back to sinus rhythm overnight on Cardizem drip; will cancel ANSHUL/CVN.
-Transthoracic echocardiogram yesterday revealed overall normal cardiac function (EF 65%) and no significant valvulopathy.
-Can discharge to home today on Eliquis 5 mg twice daily and Cardizem CD 120 mg daily.
-Outpatient stress test.
-Outpatient follow-up with Cardiology.
Impression / Plan
-
Atrial fibrillation with rapid ventricular response
-Patient converted back to sinus rhythm overnight on Cardizem drip; will cancel ANSHUL/CVN.
-Transthoracic echocardiogram yesterday revealed overall normal cardiac function (EF 65%) and no significant valvulopathy.
-[id number]: score at least 2 (HTN, age 65-74).
-Can discharge to home today on Eliquis 5 mg twice daily and Cardizem CD 120 mg daily.
-Outpatient stress test.
-Outpatient follow-up with Cardiology.
Abnormal troponin - nonischemic myocardial injury in the setting of tachyarrhythmia
-Denies chest pain
-Peak troponin on arrival, 0.046
Hypertension:
-Discharging to home on Cardizem CD as above; there was concern with ALESSANDRO/ARB in the past for induced rhabdo
HLD - on rosuvastatin
CLL -outpatient follow-up.
Physical Exam
Vital Signs/Labs
Vital Signs
Temp Pulse Resp BP Pulse Ox
97.6 F 66 20 118/82 98
03/18/24 03:21 03/18/24 03:21 03/18/24 03:21 03/18/24 03:21 03/18/24 03:21
03/17/24 03/18/24 03/19/24
06:59 06:59 06:59
Actual Weight 117.934 kg 117.254 kg
APTT 38.0 Sec (23.4-35.0) H 03/18/24 01:40
LAB Results
03/17/24 03/17/24 03/17/24
03:33 09:30 17:32
Troponin I 0.046 H* 0.020 D 0.020
Physical Exam
Constitutional: No acute distress and Comfortable
EENT: Anicteric
Cardiovascular: Rhythm & rate is regular, Pedal edema is absent, Systolic murmur absent and S1S2 is normal
Respiratory: Respiratory effort normal and Lungs clear to auscul.
GI: Soft
Neuro/Psych: AO x 3
Other: Skin (Warm, dry, intact)
Data Reviewed
-
Date of Service: March 18, 2024
EKG: Tracing Personally Visualized and interpreted (Telemetry: A-fib-->sinus rhythm)
Echo: Report Reviewed by me (EF 65%)
Medical Tests (PFT, Pathology etc): Discussed with Patient
Labs: Labs Reviewed by me
[2024-03-18] MEDS: ELIQUIS 5 MG PO (09:23)
[2024-03-18] MEDS: NON-FORMULARY ITEM 80 MG PO (09:23)
[2024-03-18] MEDS: CARDIZEM CD 120 MG PO (09:23)
[2024-03-18] MEDS: PRISTIQ 50 MG PO (09:23)
[2024-03-18] MEDS: CRESTOR 40 MG PO (09:24)
[2024-03-18 09:55] LABS: APTT 64.2 Sec (23.4-35.0)
[2024-03-18 09:58] LABS: % Basophils 0.7 % (0-2); % Eosinophils 1.2 % (0-6); % Immature Granulocytes 0.5 % (0-0.5); % Lymphocytes 51.2 % (20.5-51.1); % Monocytes 7.9 % (1.7-9.3); % Neutrophils 38.5 % (42.2-75.2); Absolute Basophils 0.1 10^3/uL (0-0.2); Absolute Eosinophils 0.1 10^3/uL (0-0.7); Absolute Lymphocytes 3.8 10^3/uL (1.2-3.4); Absolute Monocytes 0.6 10^3/uL (0.1-0.6); Absolute Neutrophils 2.8 10^3/uL (1.4-6.5); Hematocrit 46.5 % (39.0-52.0); Hemoglobin 16.8 g/dL (13.0-18.0); Mean Corp Hgb Conc. 36.1 g/dL (33.0-37.0); Mean Corpuscular Hgb 31.1 pg (27.0-31.0); Mean Platelet Volume 10.9 fL (7.4-10.4); Nucleated Red Blood Cells % 0 % (-); Platelet Count 137 10^3/uL (130-400); Red Blood Cell Count 5.41 10^6/uL (4.70-6.10); Red Cell Dist. Width 13.3 % (11.5-14.5); White Blood Cell Count 7.3 10^3/uL (4.8-10.8)
[2024-03-18 10:02] LABS: Blood Urea Nitrogen 17 mg/dl (9-20); Calcium 9.4 mg/dl (8.4-10.2); Carbon Dioxide 22 mmol/L (22-30); Chloride 109 mmol/L (98-107); Estimated Creatinine Clearance 94 ml/min; Glucose 110 mg/dl (70-99); Sodium 139 mmol/L (135-145); eGFR > 60.00
[2024-03-18] MEDS: LAMICTAL 25 MG PO (10:06)
--- NOTE | 2024-03-18 10:18 | W.PN.HOSP.TC ---
Today's Communication/Plan
-
Monitor vitals
See plan
Discharge today on diltiazem and Eliquis
Time of discharge 37 minutes
Assessment / Plan
Assessment / Plan
General: Other (64y M in no acute distress.)
HEENT: Moist mucous membranes and PERRLA
Respiratory: Clear; No Wheezes, Rales or Rhonchi
Cardiac: S1/S2, Irregular Rhythm and Tachycardia; No Murmur
GI: Soft, Non Tender, Non Distended and Normal Bowel Sounds
Musculoskeletal: No Clubbing, No Cyanosis and No Edema
Neuro: AO x 3
Recurrent Atrial Fibrillation with Rapid Ventricular Rates
hx of paroxysmal atrial fibrillation
Cardiology following
Converted to normal sinus rhythm overnight on Cardizem drip, ANSHUL/cardioversion canceled. Patient now on p.o. diltiazem and started on p.o. Eliquis. Patient will follow-up with cardiology outpatient for stress test.
Echo with EF 65% and no significant valvulopathy
Non-Ischemic Myocardial Injury
- Troponin mildly elevated on initial set.
- No complaints of chest pain or other anginal equivalents.
- EKG with A-Fib but no evidence of acute ischemia.
- Suspect this is due to A-Fib / tachyarrhythmia.
? Tick Bite
- Area is unremarkable appearing at present.
- can finish doxycycline course
- Lyme testing is pending.
CLL
- Stable. Cell counts are normal.
- Continue zanubrutinib - will bring med from home.
Anxiety / Depression
- Stable. Continue current home med regimen for mood disorder.
DVT Prophylaxis: eliquis
Code Status: Full
Anticipated Discharge: Today
Subjective/Interval History
-
Date of Service: March 18, 2024
Denies pain
Objective Data
-
Labs:
Laboratory Results
03/18/24 03/18/24
01:40 08:54
WBC 7.3
Hgb 16.8
Hct 46.5
Plt Count 137
APTT 38.0 H 64.2 H
Sodium 139
Potassium 4.0
Chloride 109 H
Carbon Dioxide 22
BUN 17
Creatinine 1.1
Glucose 110 H
Calcium 9.4
Vital Signs:
Vital Signs
Temp Pulse Resp BP Pulse Ox
97.9 F 72 18 140/84 96
03/18/24 07:35 03/18/24 07:35 03/18/24 07:35 03/18/24 07:35 03/18/24 07:35
I&O
03/17/24 03/18/24 03/19/24
06:59 06:59 06:59
Intake Total 0 / 0
Balance 0 / 0
--- NOTE | 2024-03-18 10:23 | W.DCSUMMARY ---
Discharge Summary
Discharge Data
Date of Admission: 03/17/24
Date of Discharge: 03/18/24
-
Pending Results: No
Hospital Course
64-year-old male with history of atrial fibrillation, CLL, anxiety, depression came to the hospital with recurrent episode of atrial fibrillation with rapid ventricular rate. Patient was initially started on Cardizem drip. Patient was scheduled
for ANSHUL/cardioversion however he converted to normal sinus rhythm on his own. Patient was initially on IV heparin which was later then transition to oral Eliquis. Echocardiogram was done which showed EF of 65%. Given patient symptoms patient
instructed to get outpatient stress test. Patient was seen by cardiology throughout hospitalization. He also had mild troponin elevation which was likely thought was secondary to nonischemic myocardial injury. There was also questionable tick
bite and patient was already on doxycycline which was continued on discharge. Lyme testing was still pending prior to the discharge. Once patient symptoms continue to improve he was then discharged home with instructions follow-up with all his
physicians outpatient.
Discharge Plan
-
Patient Disposition: Home (Routine Discharge)
Discharge Diagnosis/Procedures: Atrial fibrillation with rapid ventricular rate
Suspected Lyme disease
Diet: As tolerated
Activity: As tolerated
Driving Restrictions: As prior to admission
Bathing Restrictions: None
Referrals:
Rodger Rice MD [Family Provider] - in less than 1 week
Mindi Morales CRNP [Specified Professional Personl] - 04/01/24 3:00 pm
Prescriptions:
New
Eliquis 5 mg Tablet
5 mg PO BID Qty: 60 0RF
diltiazem HCl 120 mg Capsule,Extended Release 24hr
120 mg PO DAILY Qty: 30 0RF
Continued
lamotrigine 25 MG tablet, chewable dispersible
25 mg PO DAILY
desvenlafaxine succinate [Pristiq] 50 MG tablet extended release 24 hr
50 mg PO DAILY
zanubrutinib 80 mg Capsule
160 mg PO BID
rosuvastatin 40 mg Tablet
40 mg PO DAILY
doxycycline hyclate 100 mg Capsule
100 mg PO BID
Patient Comments:
patient to take for 10 days starting at 03/12/24
sumatriptan succinate [Imitrex] 25 mg Tablet
0 mg PO .COMPLEX
Rx Instructions:
take 1 tab at onset of headache; if no relief may repeat 1 tab after at least 2 hrs; max = 4 tabs/24 hr
omega-3 fatty acids-fish oil 684-1,200 mg Capsule,Delayed Release(Dr/Ec)
1 cap PO DAILY
Discharge Orders:
Discharge Patient (As Directed); Ordered 03/18/24
Ordered By: Marco Mazariegos
Discharge Date and Time
Discharge Date/Time: 03/18/24 12:31
Print Language: ARMENIAN
--- NOTE | 2024-03-18 10:39 | CM ---
I met with Dimitry this am to complete assessment. He is AAO, (I) amb and adl's. Dimitry lives at home with his and has 3 adult children who live in their own homes. Dimitry is retired from a [employer] which has allowed him to
retired earlier than he had expected.
Dimitry has CLL and treats and [facility]; he plans to contact his oncologist to make him aware of the new medications he has been placed on while at [facility].
will pick him up at discharge. No needs identified.
PCP: Dr. Rice
Pharmacy - [facility] phone:
[2024-03-18] MEDS: VIBRAMYCIN 100 MG PO (10:52)
[2024-03-18 11:13] VITALS: BP 120/82
[2024-03-19 15:03] LABS: Lyme Antibody Screen, EIA Negative (Negative)
== END 2024-03-18 12:31 | disposition home or self-care (01) | DRG 309 ==
LOC: 4 EAST ACU 03:17
PROVIDERS: Emergency Medicine; ADMITTING PHYSICIAN Hospitalist; ATTENDING PHYSICIAN Internal Medicine; CONSULT PHYSICIAN Internal Medicine; EMERGENCY PHYSICIAN Emergency Medicine; FAMILY PHYSICIAN Family Medicine
DX: I48.0 Paroxysmal atrial fibrillation (principal); A69.20 Lyme disease, unspecified; C91.10 Chronic lymphocytic leukemia of B-cell type not having achieved remission; I5A Non-ischemic myocardial injury (non-traumatic); F41.9 Anxiety disorder, unspecified; F32.A Depression, unspecified; I11.9 Hypertensive heart disease without heart failure; E78.5 Hyperlipidemia, unspecified
CPT/HCPCS: 51798; 80048; 80053; 84443; 84484; 85025; 85027; 85730; 86618; 93005; 93306; 96374; 99291

== ENCOUNTER → 2024-04-29 13:29 | Outpatient (REF) | payer MEDICARE, OTHER, SELFPAY | LOC: RCS 13:29 | PROVIDERS: ATTENDING PHYSICIAN Family Medicine | DX: I48.0 Paroxysmal atrial fibrillation (principal); C91.10 Chronic lymphocytic leukemia of B-cell type not having achieved remission; G47.33 Obstructive sleep apnea (adult) (pediatric); R79.89 Other specified abnormal findings of blood chemistry | CPT/HCPCS: 93017; 93350 ==

== ENCOUNTER → 2025-02-17 16:27 | Outpatient (REF) | payer MEDICARE, OTHER, SELFPAY ==
[2025-02-17 17:02] LABS: % Basophils 0.7 % (0-2); % Eosinophils 0.5 % (0-6); % Immature Granulocytes 2.1 % (0-0.5); % Lymphocytes 14.6 % (20.5-51.1); % Monocytes 2.6 % (1.7-9.3); % Neutrophils 79.5 % (42.2-75.2); Absolute Immature Granulocytes 0.1 10^3/uL (0-0.05); Absolute Lymphocytes 0.9 10^3/uL (1.2-3.4); Absolute Monocytes 0.2 10^3/uL (0.1-0.6); Absolute Neutrophils 4.8 10^3/uL (1.4-6.5); Hematocrit 46.3 % (39.0-52.0); Hemoglobin 15.8 g/dL (13.0-18.0); Mean Corp Hgb Conc. 34.1 g/dL (33.0-37.0); Mean Corpuscular Hgb 30.2 pg (27.0-31.0); Mean Corpuscular Volume 88.5 fL (80.0-94.0); Mean Platelet Volume 10.6 fL (7.4-10.4); Nucleated Red Blood Cells % 0 % (-); Platelet Count 143 10^3/uL (130-400); Red Blood Cell Count 5.23 10^6/uL (4.70-6.10); Red Cell Dist. Width 12.5 % (11.5-14.5); White Blood Cell Count 6.1 10^3/uL (4.8-10.8)
[2025-02-17 17:14] LABS: ALT (SGPT) 50 U/L (0-50); AST (SGOT) 42 U/L (17-59); Albumin 4.4 g/dl (3.5-5.0); Alkaline Phosphatase 93 U/L (38-126); Blood Urea Nitrogen 18 mg/dl (9-20); Calcium 9.6 mg/dl (8.4-10.2); Carbon Dioxide 30 mmol/L (22-30); Chloride 108 mmol/L (98-107); Glucose 118 mg/dl (70-99); LDH 237 U/L (120-246); Potassium 4.7 mmol/L (3.5-5.1); Sodium 143 mmol/L (135-145); Total Bilirubin 0.9 mg/dl (0.2-1.3); Total Protein 6.7 g/dl (6.3-8.2); eGFR > 60.00
== END ==
LOC: REG 16:27
PROVIDERS: ATTENDING PHYSICIAN Internal Medicine Hematology & Oncology; FAMILY PHYSICIAN Family Medicine
DX: C91.10 Chronic lymphocytic leukemia of B-cell type not having achieved remission (principal)
CPT/HCPCS: 36415; 80053; 82784; 83521; 83615; 84155; 84165; 85025; 86334